=== PATIENT | female | born 1955 | race Two or more races ===

== ENCOUNTER → 2019-10-13 10:15 | Outpatient (CLI) | payer MEDICARE, SELFPAY | PROVIDERS: Visit Provider Obstetrics & Gynecology | DX: N84.1 Polyp of cervix uteri (principal) ==

== ENCOUNTER → 2019-10-13 11:21 | Outpatient (CLI) | payer MEDICARE, SELFPAY ==
--- NOTE | 2019-10-13 | CER_PTH ---
PATIENT: GRACIELA BURNS LOC: [facility] U#:[id number] AGE/SX: 69/F ROOM: RE10/13/[address]: Dr. Teddy Delvalle MD : [id number] BED: DIS: SPEC #: [id number] RECD: 10/14/19 14:13 STATUS: ALONZO JULISSA #: [id number] LILLIAN: 10/13/19 00:[address]: Teddy Delvalle DEPT: SURGICAL PATHOLOGY RECD BY: Kadeem Quan Tissues: Uterine cervix, NOS Procedures: Surgery Specimen Level IV HEADER OPERATION: Cervical polypectomy PRE-OP DIAGNOSIS: N84.1 TISSUE SUBMITTED: Cervical polyp MICROSCOPIC DIAGNOSIS Cervical polyp, biopsy: Fragment of benign endocervical polyp. AM:brandon 10/15/19 MICROSCOPIC DESCRIPTION Slides are reviewed. GROSS DESCRIPTION Received in fixative is one container labeled with the patient's name and designated cervical polyp. The specimen consists of a moreira-pink polyp measuring 1.5 x 0.7 x 0.2 cm. Also present in the container are multiple fragments of moreira mucoid tissue measuring in aggregate 3 x 2.5 x 0.3 cm. The polyp is bisected. The entire specimen is submitted in two cassettes. Cassette contains the polyp. / SJ:brandon 10/14/19 TC:1 CPT: 97141
== END ==
PROVIDERS: Referring Provider Obstetrics & Gynecology; Visit Provider Obstetrics & Gynecology
DX: N84.1 Polyp of cervix uteri (principal)
CPT/HCPCS: 88305